=== PATIENT | male | born 1970 | race Caucasian/White ===

== ENCOUNTER 2018-04-26 09:50 | Emergency (ER) | payer OTHER ==
[2018-04-26 10:07] VITALS: BP 121/68
--- NOTE | 2018-04-26 10:56 | UC ---
Lower Extremity/Ankle HPI - HPI Summary HPI Summary: 48-year-old male presents with complaint of left foot pain. States he was windsurfing yesterday, fell from the board, and the mast came down on the top of his foot. He was able to ambulate and bear weight immediately after the injury and is ambulatory in the clinic. Reports bruising and swelling across the top of his left foot. Pain with weightbearing. Denies numbness or tingling. - History of Current Complaint Chief Complaint: UCLowerExtremity Stated Complaint: L FOOT INJURY Time Seen by Provider: 04/26/18 10:27 Hx Obtained From: Patient Onset/Duration: Sudden Onset Severity Currently: Moderate Pain Intensity: 5 Aggravating Factor(s): Standing, Ambulation Alleviating Factor(s): Rest, Ice Able to Bear Weight: Yes - Allergies/Home Medications Allergies/Adverse Reactions: Allergies Allergy/AdvReac Type Severity Reaction Status Date / Time No Known Allergies Allergy Unverified 04/26/18 10:08 Home Medications: Home Medications Ibuprofen [Goodsense Ibuprofen] 800 mg PO 04/26/18 [History] PMH/Surg Hx/FS Hx/Imm Hx Previously Healthy: Yes - Denies significant past medical history - Surgical History Surgical History: Yes Surgery Procedure, Year, and Place: reconstructed ACL/PCL 1990 Rt KNEE. LEFT SHOULDER 2015 - Family History Family History: Noncontributory - Social History Occupation: Employed Full-time Lives: With Family Alcohol Use: Rare Substance Use Type: None Smoking Status (MU): Never Smoked Tobacco Review of Systems Constitutional: Negative Skin: Bruising Motor: Negative Neurovascular: Negative Musculoskeletal: Other: - Pain to dorsal aspect of the left foot Is Patient Immunocompromised?: No All Other Systems Reviewed And Are Negative: Yes Physical Exam Triage Information Reviewed: Yes Appearance: Well-Appearing, No Pain Distress, Well-Nourished Vital Signs: Initial Vital Signs Temp 97.9 F 04/26/18 10:02 Pulse 54 04/26/18 10:02 Resp 18 04/26/18 10:02 BP 121/68 04/26/18 10:02 Pulse Ox 100 04/26/18 10:02 Respiratory: Positive: No respiratory distress Cardiovascular: Positive: Pulses Normal, Brisk Capillary Refill Musculoskeletal: Positive: Strength Intact, ROM Intact, Other: - Tenderness over the dorsal aspect of left foot more prominent along the lateral aspect. Neurological: Positive: Alert, Other: - Sensation intact distally Skin: Positive: Other - Ecchymosis across the dorsal aspect of the left foot. There is a moderate hematoma over the lateral aspect of the left foot. Diagnostics - Radiology No standard instances Radiology Interpretation Completed By: ED Physician - No fracture or dislocation., Radiologist - no radiographically evident fracture of left foot Lower Extremity Course/Dx - Course Course Of Treatment: 48 year old male present with left dorsal foot pain, swelling, and bruising after falling while wind surfing and having mast strike his left foot. Able to ambulate and bear weight. Exam revealed eccymosis and hematoma to dorsal foot. X-ray negative for fracture. Recommend conservative treatment with rest, ice, compression, and elevation. OTC analgesics for pain. - Differential Dx/Diagnosis Differential Diagnosis/HQI/PQRI: Compartment Syndrome, Contusion, Fracture ( Closed) Provider Diagnoses: Contusion left foot Discharge - Sign-Out/Discharge Documenting (check all that apply): Patient Departure All imaging exams completed and their final reports reviewed: Yes - Discharge Plan Condition: Stable Disposition: HOME Patient Education Materials: Contusion in Adults (ED) Referrals: Ar Zarate [Primary Care Provider] - 7 Days (If no improvement.) Additional Instructions: The x-ray of your foot performed in the clinic today did not show any evidence of fracture. Your your pain is likely due to the severe contusion you received from the injury. The X-ray will be reviewed by the radiologist and we will contact you if there is any new findings. Rest the foot as much as possible. You may bear weight and ambulate as tolerated. I would avoid any strenuous activity such as running and jumping until the pain has subsided. Apply ice to the foot for 15-20 minutes 3-4 times a day to help reduce any swelling. You may also use an Yogi wrap to the foot to help reduce swelling. Be sure to keep her foot elevated while sitting to help keep the swelling down. Using [id number] pain medication such as acetaminophen (Tylenol) or ibuprofen (Advil, Motrin) according to directions as needed for pain. Follow-up with your primary care provider in 7 days if your symptoms persist. Seek immediate medical attention if you have pain that is not managed with over- the-counter pain medication, increased swelling of the foot, he developed any numbness or tingling in the foot or toes, your foot or toes become pale or a blue-collar, you are unable to ambulate, or have any worsening of symptoms. - Billing Disposition and Condition Condition: STABLE Disposition: Home
--- NOTE | 2018-04-26 11:50 | RAD ---
INDICATION: Dorsal foot pain after serving more versus left foot COMPARISON: None. TECHNIQUE: 3 views of the left foot were obtained. FINDINGS: The adequately corticated bones are properly aligned. Joint spaces appear maintained. No fracture, dislocation or focal bony abnormality is seen. IMPRESSION: NO RADIOGRAPHICALLY APPARENT FRACTURE OF THE LEFT FOOT. If the patient's symptoms persist, follow-up imaging is recommended.
== END 2018-04-26 11:40 | disposition home or self-care (01) ==
LOC: UCEAST 09:50
DX: S90.32XA Contusion of left foot, initial encounter (principal); V94.0XXA Hitting object or bottom of body of water due to fall from watercraft, initial encounter; Y93.18 Activity, surfing, windsurfing and boogie boarding; Y92.838 Other recreation area as the place of occurrence of the external cause
CPT/HCPCS: 99211; G0463

== ENCOUNTER 2018-07-21 08:41 | Emergency (ER) | payer OTHER ==
[2018-07-21] MEDS ORDERED: NS 0.9% 1000 ML* 1,000 ML IV ONE ×2 (09:33→13:10)
[2018-07-21 09:56] LABS: Urine Appearance Clear; Urine Blood Negative (Negative); Urine Color Yellow; Urine Ketones Negative (Negative); Urine Protein Negative (Negative); Urine Urobilinogen Negative (Negative)
[2018-07-21 10:31] LABS: ABS Basophils 0 10^3/ul (0-0.2); ABS Eosinophils 0.1 10^3/ul (0-0.6); ABS Monocytes 0.3 10^3/ul (0-0.8); ABS Neutrophils 3.3 10^3/ul (1.5-7.7); ABS Nucleated RBC 0 10^3/ul; Eosinophil % 1.2 %; Hematocrit 42 % (42-52); Hemoglobin 14.4 g/dl (14.0-18.0); Lymphocyte % 21.6 %; Mean Corpuscular HGB Conc 34 g/dl (31-36); Mean Corpuscular Hemoglobin 31 pg (27-31); Mean Corpuscular Volume 90 fL (80-94); Mean Platelet Volume 9.1 fL (7.4-10.4); Nucleated Red Blood Cells % 0; Platelet Count 158 10^3/ul (150-450); Red Blood Count 4.65 10^6/ul (4.00-5.40); Red Cell Distribution Width 13 % (10.5-15); White Blood Count 4.8 10^3/ul (3.5-10.8)
[2018-07-21] MEDS ORDERED: Aspirin 81 mg CHEW TAB* 81 MG TAB.CHEW PO ONE (11:53)
[2018-07-21] MEDS ORDERED: Dexamethasone IV* 4 MG/ML 5 ML VIAL (20 MG) IVPB ONE (13:10)
--- NOTE | 2018-07-21 13:34 | CONSULT ---
Subjective Date of Service: 07/21/18 Interval History: This is a 48 year old gentleman that came to the ED with complaint of right- sided rib pain. Patient states he is training for a marathon and has worked out heavily this week, including heavy leg presses and ran 17 miles yesterday. Patient states pain started in the middle of the night after he did leg presses in the morning. Took ibuprofen 400mg with no appreciable relief. Today, pain persists, and his wanted him to come for evaluation in the ED. ED evaluation reveals normal CXR, normal US of gallbladder and normal CT scan. Labs show borderline troponin and elevated CPK. Hospitalists were asked to consult. Review of Systems - Measurements Intake and Output: Intake and Output Last 24 Hours 07/19/18 07/20/18 07/21/18 07/22/18 06:59 06:59 06:59 06:59 Intake Total 1000 Balance 1000 Weight 175 lb Intake: IV Fluids 1000 - Review of Systems Constitutional Symptoms: Negative: Weight Gain, Weight Loss, Weakness, Fatigue, Fever, Night Sweats, Unexplained Falls, Other Dermatology: Negative: Normal, Rash, Skin Lesions, Cancer, Skin Lumps, Other HEENT: Negative: Normal, Change in Hearing, Vertigo, Dental Problems, Tinnitus, Sinus Problem, Other Eyes: Negative: Normal, Change in Vision, Double Vision, Eye Pain, Glaucoma, Cataract, Contacts or Glasses, Other Thyroid: Negative: Normal, Goiter, Thyroid Nodule, Cold Intolerance, Heat Intolerance , Sweatiness, Tremor, Frequent Defecation, Constipation, Palpitations, Primary Hypothyroidism, Primary Hyperthyroidism, Weight Loss, Weight Gain, Change in Skin/Hair, Change in Menstruation, Radiation Exposure, Other Cardiology: Positive: Chest Pain - right ribcage reproducible with inspiration and palpation Negative: Normal, Shortness of Breath, Palpitations, Swelling of Ankles, Peripheral Vascular Dis, Edema, Faintness, Syncope, Claudication, Proximal NocturnalDyspnea, Orthopnoea, Other Gastroenterology: Negative: Normal, Abdominal Pain, Nausea, Vomiting, Anorexia, Indigestion, Difficulty Swallowing, Heartburn, Constipation, Diarrhea, Blood in Stools, Change in Bowel Habits, Haematemesis, Melena, Other Genital - Urinary: Negative: Normal, Dysuria, Hematuria, Polyuria, Nocturia, Other Musculoskeletal: Negative: Joint Pain, Joint Stiffness, Arthritis, Osteoporosis, Low Back Pain , Sciatica, Joint Deformities, Kyphoscoliosis, Other Endocrinology: Negative: Normal, Thyroid Problems, Adrenal Problems, Gonadal Problems, Family Hx Endocrine Disorders, Obesity, Diabetes Mellitus, Hyperglycemia, Hx Hypoglycemia, Diabetic Foot Ulcers, Calluses, Hirsutism, Menstral Abnormalities , Polydipsia, Polyuria, Gonadal Problems, Gynecomastia, Pituitary disease, Other Hematologic/Lymphatic: Negative: Anemia, Easy Brusing, Hx Leukemia, Hx Lymphoma, Use of Anticoagulant, Use of Antiplatelet Drugs, Other Neurology: Negative: Normal, Headache, Migraines, Change in Vision, Diplopia, Dizziness , Change in Balancing, Change in Coordination, Change in Memory, Change in Speech, Change in Sphincter Function, Change in Walking, Numbness\\Paresthesiae, Unexplained Weakness, Hx of Stroke\\TIA, Hx of Seizures, Other Psychiatry: Negative: Normal, Depression, Anxiety, Depressed Mood, Adhedonia, Sexual Dysfunction, Weight Change, Guilt Feelings, Tearfulness, Unusual Fatigue, Unusual Anxiety, Suicidal Ideation, Hypomania, Eating Disorders, Other Allergic/Immunologic: Negative: Hx Anaphylaxis, Hx Angioedema, Hx Environmental, Hx Seasonal, Athsma, Hx HIV, Immunocompromise, Swollen Glands LymphNodes, Other Objective Active Medications: Sodium Chloride (Ns 0.9% 1000 Ml*) 1,000 mls @ 1,000 mls/hr IV ED ONCE ONE Stop: 07/21/18 14:09 Last Admin: 07/21/18 13:24 Dose: 1,000 mls/hr Vital Signs - 8 hr 07/21/18 08:45 Temperature 98.0 F Pulse Rate 51 Respiratory 20 Rate Blood Pressure 145/81 (mmHg) O2 Sat by Pulse 100 Oximetry Oxygen Devices in Use Now: None Appearance: alert, NAD Eyes: No Scleral Icterus, PERRLA Ears/Nose/Mouth/Throat: NL Teeth, Lips, Gums, Mucous Membranes Moist Neck: NL Appearance and Movements; NL JVP Respiratory: Symmetrical Chest Expansion and Respiratory Effort, Clear to Auscultation Cardiovascular: NL Sounds; No Murmurs; No JVD, RRR - mild bradycardia, No Edema Abdominal: NL Sounds; No Tenderness; No Distention Extremities: - - tenderness to palpation right ribs, no ecchymosis or erythema Skin: No Rash or Ulcers Neurological: Alert and Oriented x 3, NL Sensation, NL Gait, NL Muscle Strength and Tone Nutrition: Taking PO's Result Diagrams: 07/21/18 10:22 07/21/18 10:22 Diagnostic Imaging: Patient Name: SHANELL RODARTE Medical Record#: [id number] Ordering Physician: Lester LARIOS Acct.#: [id number] : 1970 Age: 48 Sex: M Location: EMERGENCY DEPARTMENT Exam Date: 07/21/18 1155 ADM Status: REG ER Order Information: CHEST 1 VW Accession Number: [id number] CPT: 22543 Indication: Chest pain. Single view of the chest demonstrates no mediastinal shift. Heart is of normal size and configuration. Lung ortez are clear. IMPRESSION: No active cardiopulmonary disease is noted. <Electronically signed by Ina Wolfe MD in [place]> 07/21/18 1258 Dictated By: Ina Wolfe MD Dictated Date/Time: 07/21/18 1258 Transcribed Date/Time: 07/21/18 1254 Copy to: Patient Name: SHANELL RODARTE Medical Record#: [id number] Ordering Physician: Lester LARIOS Acct.#: [id number] : 1970 Age: 48 Sex: M Location: EMERGENCY DEPARTMENT Exam Date: 07/21/18 1111 ADM Status: REG ER Order Information: CT ABD/PEL W/O Accession Number: [id number] CPT: 23732 INDICATION: Right costovertebral angle pain. COMPARISON: There are no relevant prior studies available for comparison. TECHNIQUE: A CT scan of the abdomen and pelvis was performed without intravenous and without oral contrast. Contiguous axial sections were obtained from the lung bases through the symphysis pubis. Images were reconstructed in the coronal and sagittal planes. FINDINGS: LUNG BASES: The lung bases are clear. No pleural effusion is present. LIVER: The liver is normal in size. No significant focal abnormality is seen on this noncontrast study. GALLBLADDER: No calcified gallstones are seen. BILE DUCTS: No intra or extrahepatic ductal distention is seen. SPLEEN: The spleen is normal in size without significant focal abnormality. PANCREAS: The pancreas is normal in size. No ductal distention or calcifications are seen. ADRENAL GLANDS: The adrenal glands are normal in size. KIDNEYS: The kidneys are normal in size. No renal calculi or hydronephrosis is seen. AORTA: The aorta is normal in caliber without significant calcific plaque. LYMPH NODES: No significantly enlarged lymph nodes are seen. BOWEL: The stomach, small and large bowel appear nondistended. The appendix is not well visualized. There is no evidence for inflammatory change in the right lower quadrant. There are scattered diverticula within the colon. There is no evidence for diverticulitis or colitis. PELVIC ORGANS: No bladder wall thickening is seen. The prostate gland is slightly enlarged measuring 4.1 cm in transverse dimension. PERITONEUM: No free intraperitoneal air or fluid is seen. BONES: No significant focal osseous abnormality is seen. IMPRESSION: NO EVIDENCE FOR ACUTE FINDING OR CAUSE FOR THE PATIENT'S ABDOMINAL PAIN IS SEEN. <Electronically signed by Quang Mosqueda MD in [place]> 07/21/18 1150 This report is only to be considered final once signed by the Provider(s) as displayed in the "<Electronically Signed by >" field (s). Absence of a signature indicates the report is in a draft status and still needs to be finalized. In the event this document was created by someone other than the signing Provider, the individual initiating the document will be listed in the "Entered by:" or "Dictated by:" ortez. 1 of 2 Assessment/Plan - Billing Recommendations: 1. Rib Pain - Imaging negative as above - CPK and trop elevated, likely exercise induced costochondritis - Had 1 liter IVF, run 2nd bolus with 1 dose IV decadron now - Discharge on medrol dose cony 2. Elevated Troponin - EKG shows bradycardia, which is expected given his rigorous exercise routine and marathon training - Chest pain is atypical and reproducible, bump in trop and CPK 2/2 muscle breakdown Rationale: Discharge Discussed with patient and ER PA, patient should take a break from running and exercise for 1 week until inflammation resolves. Patient has a sports medicine doctor that he can follow up with as needed. Stressed DO NOT take ibuprofen while on steroids. Patient is traveling to [place] later in the week, there is no current contraindication to travel. Discussed with HARRIET Jack and Dr. Marsha Pryor, Hospitalist attending.
[2018-07-21 14:43] VITALS: BP 123/76
--- NOTE | 2018-07-21 16:45 | ED ---
Abdominal Pain/Male - HPI Summary HPI Summary: Patient is a 48-year-old male who presents emergency department for right upper quadrant pain that started Saturday, 4 days ago. Patient states he noticed right upper quadrant pain on Saturday that has been intermittent until last night. Patient states since last night pain has been severe and constant. He notes it is located in the right upper quadrant and radiates into his right back. Pain is worse with inspiration and movement, especially lying flat. Denies fever, recent illness, cough, urinary symptoms. Pain does not radiate into the groin or testicle. Patient denies past medical history. Patient does note that he is currently training for a marathon and ran 17 miles yesterday. Patient is not a smoker. He currently does not have a family doctor. He does note significant cardiac history for his family members with heart attacks in the 50s and 60s. Symptoms are moderate in severity. - History of Current Complaint Chief Complaint: EDAbdPain Stated Complaint: RIGHT FLANK PAIN Time Seen by Provider: 07/21/18 09:04 Hx Obtained From: Patient Pain Intensity: 2 Pain Scale Used: 0-10 Numeric - Allergies/Home Medications Allergies/Adverse Reactions: Allergies Allergy/AdvReac Type Severity Reaction Status Date / Time No Known Allergies Allergy Unverified 07/21/18 08:49 PMH/Surg Hx/FS Hx/Imm Hx Previously Healthy: Yes Endocrine/Hematology History: Denies: Hx Diabetes, Hx Thyroid Disease Cardiovascular History: Denies: Hx Hypercholesterolemia, Hx Hypertension, Hx Pacemaker/ICD, Hx Peripheral Vascular Disease History: Denies: Hx Renal Disease Musculoskeletal History: Denies: Hx Arthritis, Hx Rheumatoid Arthritis, Hx Osteoporosis Sensory History: Denies: Hx Cataracts, Hx Contacts or Glasses, Hx Glaucoma, Hx Hearing Aid Opthamlomology History: Denies: Hx Cataracts, Hx Contacts or Glasses, Hx Glaucoma Neurological History: Denies: Hx Headaches, Hx Seizures, Hx Transient Ischemic Attacks (TIA) Psychiatric History: Denies: Hx Anxiety, Hx Depression, Hx Panic Disorder - Surgical History Surgery Procedure, Year, and Place: reconstructed ACL/PCL 1991 Rt KNEE. LEFT SHOULDER 2016 Infectious Disease History: No Infectious Disease History: Denies: Traveled Outside the [place] in Last 30 Days - Family History Known Family History: Positive: Cardiac Disease Family History: Noncontributory - Social History Occupation: Employed Full-time Lives: With Family Alcohol Use: Rare Substance Use Type: Reports: None Smoking Status (MU): Never Smoked Tobacco Review of Systems Constitutional: Negative Negative: Fever, Chills Cardiovascular: Negative Respiratory: Negative Positive: Abdominal Pain. Negative: Vomiting, Diarrhea, Nausea Genitourinary: Negative Musculoskeletal: Negative Neurological: Negative All Other Systems Reviewed And Are Negative: Yes Physical Exam Triage Information Reviewed: Yes Vital Signs On Initial Exam: Initial Vitals Temp Pulse Resp BP Pulse Ox 98.0 F 51 20 145/81 100 07/21/18 08:45 07/21/18 08:45 07/21/18 08:45 07/21/18 08:45 07/21/18 08:45 Vital Signs Reviewed: Yes Appearance: Positive: Pain Distress - Pt. lying in bed, appears very uncomfortable but nontoxic. present. Skin: Positive: Warm, Dry Head/Face: Positive: Normal Head/Face Inspection Eyes: Positive: Normal, EOMI Neck: Positive: Supple, Nontender Respiratory/Lung Sounds: Positive: Clear to Auscultation, Breath Sounds Present Cardiovascular: Positive: Normal, RRR Abdomen Description: Positive: Other: - Moderate RUQ pain. Mildly positive batista sign. Mild right CVA tenderness. Neurological: Positive: Normal, CN Intact II-III Psychiatric: Positive: Affect/Mood Appropriate Diagnostics - Vital Signs Vital Signs Temp Pulse Resp BP Pulse Ox 07/21/18 14:35 98.1 F 56 18 123/76 100 07/21/18 11:30 52 16 129/81 100 07/21/18 08:45 98.0 F 51 20 145/81 100 - Laboratory Lab Results: Lab Results 07/21/18 07/21/18 07/21/18 Range/Units 09:40 10:22 10:22 WBC 4.8 (3.5-10.8) 10^3/ul RBC 4.65 (4.00-5.40) 10^6/ul Hgb 14.4 (14.0-18.0) g/dl Hct 42 (42-52) % MCV 90 (80-94) fL MCH 31 (27-31) pg MCHC 34 (31-36) g/dl RDW 13 (10.5-15) % Plt Count 158 (150-450) 10^3/ul MPV 9.1 (7.4-10.4) fL Neut % (Auto) 69.7 % Lymph % (Auto) 21.6 % Mora % (Auto) 7.0 % Eos % (Auto) 1.2 % Baso % (Auto) 0.5 % Absolute Neuts (auto) 3.3 (1.5-7.7) 10^3/ul Absolute Lymphs (auto) 1.0 (1.0-4.8) 10^3/ul Absolute Monos (auto) 0.3 (0-0.8) 10^3/ul Absolute Eos (auto) 0.1 (0-0.6) 10^3/ul Absolute Basos (auto) 0 (0-0.2) 10^3/ul Absolute Nucleated RBC 0 10^3/ul Nucleated RBC % 0 D-Dimer, Quantitative (Less Than 230) ng/mL Sodium 140 (135-145) mmol/L Potassium 3.9 (3.5-5.0) mmol/L Chloride 106 (101-111) mmol/L Carbon Dioxide 27 (22-32) mmol/L Anion Gap 7 (2-11) mmol/L BUN 17 (6-24) mg/dL Creatinine 0.99 (0.67-1.17) mg/dL Est GFR ( Amer) 98.0 (>60) Est GFR (Non-Af Amer) 81.0 (>60) BUN/Creatinine Ratio 17.2 (8-20) Glucose 98 (70-100) mg/dL Calcium 9.3 (8.6-10.3) mg/dL Total Bilirubin 0.90 (0.2-1.0) mg/dL AST 32 (13-39) U/L ALT 17 (7-52) U/L Alkaline Phosphatase 59 (34-104) U/L Total Creatine Kinase 407 H (10-223) U/L Troponin I 0.05 H* (<0.04) ng/mL Total Protein 6.5 (6.4-8.9) g/dL Albumin 4.2 (3.2-5.2) g/dL Globulin 2.3 (2-4) g/dL Albumin/Globulin Ratio 1.8 (1-3) Lipase 10 L (11.0-82.0) U/L Urine Color Yellow Urine Appearance Clear Urine pH 9.0 (5-9) Ur Specific [place] 1.010 (1.010-1.030) Urine Protein Negative (Negative) Urine Ketones Negative (Negative) Urine Blood Negative (Negative) Urine Nitrate Negative (Negative) Urine Bilirubin Negative (Negative) Urine Urobilinogen Negative (Negative) Ur Leukocyte Esterase Negative (Negative) Urine Glucose Negative (Negative) 07/21/18 07/21/18 Range/Units 12:12 12:13 WBC (3.5-10.8) 10^3/ul RBC (4.00-5.40) 10^6/ul Hgb (14.0-18.0) g/dl Hct (42-52) % MCV (80-94) fL MCH (27-31) pg MCHC (31-36) g/dl RDW (10.5-15) % Plt Count (150-450) 10^3/ul MPV (7.4-10.4) fL Neut % (Auto) % Lymph % (Auto) % Mora % (Auto) % Eos % (Auto) % Baso % (Auto) % Absolute Neuts (auto) (1.5-7.7) 10^3/ul Absolute Lymphs (auto) (1.0-4.8) 10^3/ul Absolute Monos (auto) (0-0.8) 10^3/ul Absolute Eos (auto) (0-0.6) 10^3/ul Absolute Basos (auto) (0-0.2) 10^3/ul Absolute Nucleated RBC 10^3/ul Nucleated RBC % D-Dimer, Quantitative < 200 (Less Than 230) ng/mL Sodium (135-145) mmol/L Potassium (3.5-5.0) mmol/L Chloride (101-111) mmol/L Carbon Dioxide (22-32) mmol/L Anion Gap (2-11) mmol/L BUN (6-24) mg/dL Creatinine (0.67-1.17) mg/dL Est GFR ( Amer) (>60) Est GFR (Non-Af Amer) (>60) BUN/Creatinine Ratio (8-20) Glucose (70-100) mg/dL Calcium (8.6-10.3) mg/dL Total Bilirubin (0.2-1.0) mg/dL AST (13-39) U/L ALT (7-52) U/L Alkaline Phosphatase (34-104) U/L Total Creatine Kinase (10-223) U/L Troponin I 0.05 H* (<0.04) ng/mL Total Protein (6.4-8.9) g/dL Albumin (3.2-5.2) g/dL Globulin (2-4) g/dL Albumin/Globulin Ratio (1-3) Lipase (11.0-82.0) U/L Urine Color Urine Appearance Urine pH (5-9) Ur Specific [place] (1.010-1.030) Urine Protein (Negative) Urine Ketones (Negative) Urine Blood (Negative) Urine Nitrate (Negative) Urine Bilirubin (Negative) Urine Urobilinogen (Negative) Ur Leukocyte Esterase (Negative) Urine Glucose (Negative) Result Diagrams: 07/21/18 10:22 07/21/18 10:22 Lab Statement: Any lab studies that have been ordered have been reviewed, and results considered in the medical decision making process. Abdominal Pain Fem Course/Dx - Course Course Of Treatment: Pt. presenting with RUQ and flank pain. He is very uncomfortable on exam. Pt. declines pain medication. He is afebrile with stable VS. Suspect GB stones or possibly kidney stone. Will obtain labs and GB u/s. Labs are unremarkable. GB us shows mild hepatomegaly, reading per radiology. Pt. examined by Dr. Knutson who examined pt. He recommends CT scan abd./pelvis for further evaluation of possible urolithiasis. Will also add troponin and ECG. ECG done at 1120 shows sinus bradycardia at a rate of 43, normal axis, early repolarization, unchanged from prior ECG. Troponin came back mildly elevated at 0.05 and CK 407. ASA ordered which pt. declined. Hospitalist consulted for potential admission. Pt.'s sport medicine Dr. kyle, Dr. Zarate, and explained that it is not uncommon for marathon runners to have elevated troponin levels several days after high intensity workup. Pt. was seen by hospitalist and they feel he can safely be discharged home. Pt. would prefer to be d/c. Hospiatlist suspects muscloskeletal in nature and recommends IV decadron , another liter of fluids and medrol dose pack. Pt. to f.u with PCP in 1-2 days. To return to ER if sxs change or worsen. - Diagnoses Differential Diagnosis/HQI/PQRI: AMI, Bowel Obstruction, Constipation, Gall Bladder Disease, Hepatitis, Ischemic Bowel, Pancreatitis, Peptic Ulcer Disease, Renal Colic Provider Diagnoses: Flank pain, Abdominal pain Discharge - Sign-Out/Discharge Documenting (check all that apply): Patient Departure - Discharge Plan Condition: Good Disposition: HOME Prescriptions: methylPREDNISolone [Medrol Dosepak 4 MG*] 0 mg PO .SEE ELYSSA INSTRUCTION #1 tab Patient Education Materials: Muscle Strain (ED), Flank Pain (ED) Referrals: Ar Zarate [Primary Care Provider] - Additional Instructions: Schedule a follow up appointment with your PCP in 1-2 days Take steroid pack as directed Return to ER if symptoms change or worsen - Billing Disposition and Condition Condition: GOOD Disposition: Home
== END 2018-07-21 14:35 | disposition home or self-care (01) ==
LOC: ED 08:41
DX: R10.84 Generalized abdominal pain (principal)
CPT/HCPCS: 36415; 71045; 74176; 76705; 80053; 81003; 82550; 83690; 84484; 85025; 85379; 93005; 96361; 96365; 99283; A9270-GY; J1100